=== PATIENT | female | born 1990 | race American Indian/Alaskan Native ===

== ENCOUNTER → 2021-02-06 | Outpatient (CLI) | payer MEDICAID | END | disposition home or self-care (01) | LOC: SLR 11:00 | PROVIDERS: ATTEND Internal Medicine | DX: G47.30 Sleep apnea, unspecified (principal) | CPT/HCPCS: G0399 ==

== ENCOUNTER 2021-04-17 07:43 | Day surgery (SDC) | payer MEDICAID ==
--- NOTE | 2021-04-17 09:34 | Discharge Summary ---
Providers - Providers Date of Admission: 04/17/2021 Date of discharge: 04/17/21 Attending physician: RODRIGO SWENSON MD Primary care physician: RISA MALDONADO Hospitalization Reason for admission: pre-op egd Condition: Good Procedures: egd with bx Hospital course: Pt presented for a pre-op EGD as part of planning for up coming bariatric surgery. Procedure was uneventful and pt recovered well and was discharged to home. Disposition: 01 HOME / SELF CARE / HOMELESS Final Discharge Diagnosis (Prints w/discharge instructions): dyspepsia, morbid obesity Core Measure Documentation - Palliative Care Palliative Care/ Comfort Measures: Not Applicable - Core Measures Any of the following diagnoses?: none Exam - Physical Exam Narrative exam: unchanged pre-op Plan Activity: no restrictions Diet: low carbohydrate Follow up with: RISA MALDONADO MD [Primary Care Provider] - 7 Days
--- NOTE | 2021-04-17 09:35 | Operative Report ---
Operative Report Operative Report: DATE: 04/17/2021 SURGERY: Upper endoscopy. SURGEON: Elida Harris M.D. PROCEDURE: EGD with biopsy PRE OP DX: morbid obesity, GERD POST OP DX: morbid obesity, GERD TYPE OF ANESTHESIA: MAC. ESTIMATED BLOOD LOSS: None. COMPLICATIONS: None. SPECIMENS REMOVED: antral biopsy FINDINGS: 1. Small hiatal hernia. 2. gastritis INDICATIONS:INDICATION FOR PROCEDURE: Patient is a 30-year-old female with a long history of morbid obesity. She is planned to have a weight loss procedure and is here for preoperative planning EGD. PROCEDURE DETAILS: After consent was reviewed, patient was taken back to the operating room where patient was placed in the left lateral decubitus position and a bite block was placed in the mouth. After a time-out was called, MAC anesthesia was initiated. I then passed the endoscope into her oropharynx, into her esophagus, visualized the entire esophagus, which was all within normal limits. Z-line was noted to about 36 cm from incisors. I then visualized the stomach and the first portion of the duodenum and there were no abnormalities I could clearly visualize except for antral gastritis. A cold forceps biopsy of the antrum was taken and will be sent to pathology to evaluate for H.pylori. I then retroflexed the scope in the stomach and visualized the hiatus and I could see a small hiatal hernia. I then desufflated the stomach and removed the endoscope. Patient tolerated procedure well and was transferred to recovery room in good and stable condition.
[2021-04-17] MEDS ORDERED: propofoL 200 MG/20 ML VIAL IV ONE (10:59)
[2021-04-17] MEDS ORDERED: LIDOCAINE MPF (2%) 20 MG/1 ML VIAL 5 ML ONE (11:00)
--- NOTE | 2021-04-17 11:27 | Anesthesia Consultation ---
Anesthesia Consult and Med Hx - Airway Anesthetic Teeth Evaluation: Good ROM Head & Neck: Adequate Mental/Hyoid Distance: Adequate Mallampati Class: Class II Intubation Access Assessment: Probably Good - Pulmonary Exam CTA: Yes - Cardiac Exam Cardiac Exam: RRR - Pre-Operative Health Status ASA Pre-Surgery Classification: ASA2 Proposed Anesthetic Plan: MAC - Pulmonary Hx Smoking: No - Cardiovascular System Hx Hypertension: No - Endocrine Hx Non-Insulin Dependent Diabetes: No - Other Systems Hx Obesity: Yes
--- NOTE | 2021-04-17 11:27 | Anesthesia Day of Surgery ---
Anesthesia Day of Surgery - Day of Surgery Patient Examined: Yes Patient H&P Reviewed: Yes Patient is NPO: Yes
--- NOTE | 2021-04-17 18:21 | Post Anesthesia Evaluation ---
- Post Anesthesia Evaluation Patient Participated: Yes Airway Patent: Yes Stable Respiratory Function: Yes Nausea/Vomiting: No Temp > 96.8F: Yes Pain Manageable: Yes Adequeate Hydration: Yes Anesthesia Complications: No Block Receding Appropriately: Not Applicable Patient on Ventilator: No
[2021-04-17 20:16] VITALS: BP 131/81
== END 2021-04-17 12:00 | disposition home or self-care (01) ==
LOC: GIO 07:43
PROVIDERS: ATTEND Surgery
DX: E66.01 Morbid (severe) obesity due to excess calories (principal); K21.9 Gastro-esophageal reflux disease without esophagitis; K44.9 Diaphragmatic hernia without obstruction or gangrene; K29.50 Unspecified chronic gastritis without bleeding; K31.89 Other diseases of stomach and duodenum; Z79.899 Other long term (current) drug therapy
CPT/HCPCS: 43239; 88305; 88342; J2704; J3490; J7120

== ENCOUNTER 2021-05-21 07:37 | Observation (INO) | payer MEDICAID ==
[2021-05-16 09:57] LABS: Hemoglobin 11.8 gm/dl (10.1-14.3); Mean Corpuscular HGB Conc 31 % (30-34); Mean Corpuscular Volume 81 fl (79-97); Platelet Count 234 K/mm3 (140-440); Red Cell Distribution Width 14.1 % (13.2-15.2)
--- NOTE | 2021-05-16 10:01 | Anesthesia Consultation ---
Anesthesia Consult and Med Hx Date of service: 05/21/21 - Airway Anesthetic Teeth Evaluation: Good ROM Head & Neck: Adequate Mental/Hyoid Distance: Adequate Mallampati Class: Class II Intubation Access Assessment: Good - Pre-Operative Health Status ASA Pre-Surgery Classification: ASA3 Proposed Anesthetic Plan: General - Pulmonary Hx Smoking: No Hx Respiratory Symptoms: No (+2FS) Hx Sleep Apnea: Yes - Cardiovascular System Hx Hypertension: No - Central Nervous System Hx Psychiatric Problems: No - Gastrointestinal Hx Gastroesophageal Reflux Disease: Yes - Endocrine Hx Non-Insulin Dependent Diabetes: No - Hematic Hx Sickle Cell Disease: No - Other Systems Hx Cancer: No Hx Obesity: Yes - Additional Comments Anesthesia Medical History Comments: Cardiac, pulmonary, psych, and med clearances on chart
[2021-05-16 10:21] LABS: Alanine Aminotransferase 15 units/L (7-56); Albumin 4.5 g/dL (3.9-5); Blood Urea Nitrogen 17 mg/dL (7-17); Calcium 9.6 mg/dL (8.4-10.2); Hemolysis Index 3
[2021-05-16 10:23] LABS: BUN/Creatinine Ratio 24
[~2021-05-21 07:37] MED LIST: ENOXAPARIN 40 MG/0.4 ML INJ SUB-Q NR; GABAPENTIN 500 MG/10 ML ORAL LIQD PO SCH; MIDAZOLAM 2 MG/2 ML INJ IV SCH; SCOPOLAMINE TRANSDERMAL PATCH 72 HR TD SCH; methOCARBAMOL 1,000 MG in SODIUM CHLORIDE 0.9% 250ML 250 ML IV ONE; metroNIDAZOLE/NS 500 MG/100 ML 500 MG/100 ML BAG IV NR
[2021-05-21] MEDS ORDERED: ENOXAPARIN 40 MG/0.4 ML INJ SUB-Q ONE (08:04)
[2021-05-21] MEDS ORDERED: BACTERIOSTATIC SODIUM CHLORIDE 0.9% 30 ML VIAL INFILTRATI ONE (08:04)
[2021-05-21] MEDS: LACTATED RINGERS 1,000 ML IV SCH (09:00)
[2021-05-21] MEDS ORDERED: KETAMINE/STERILE WATER 50 MG/ML SYRINGE ONE (09:42)
[2021-05-21] MEDS ORDERED: ONDANSETRON 4 MG/2 ML INJ IV PRN ×2 (09:58→14:43)
--- NOTE | 2021-05-21 09:58 | Anesthesia Day of Surgery ---
Anesthesia Day of Surgery - Day of Surgery Patient Examined: Yes Patient H&P Reviewed: Yes Patient is NPO: Yes
[2021-05-21] MEDS ORDERED: SCOPOLAMINE TRANSDERMAL PATCH 72 HR TD SCH (10:00)
--- OUTSIDE RECORDS SUMMARY | 2021-05-21 11:03 | External Medical Summary ---
:1990 Author Organization [facility], [facility] Address [address] [place] [address] Care Team Providers Name Role Phone Steven Unavailable [phone] PROBLEMS Type Condition ICD9-CM [id number]-YP Onset Condition W/U Status Risk SNOM ED Notes Code Code Dates Status Code Problem Sleep apnea, G47.30 Active confirmed 3288474 [id number] unspecified Problem Morbid E66.01 Active confirmed 026296461 (severe) obesity due to excess calories Problem Dietary Z71.3 Active confirmed 253891676 counseling and surveillance Problem Functional K30 Active confirmed [id number] dyspepsia ALLERGIES Allergen (clinical drug Drug/Non Drug Allergy Reaction Allergy Type Onset Date Status ingredient) documented on EMR Glucosamine Shellfish-derived Unknown Drug Allergy Acti ve Products ENCOUNTERS from 1990 to 2021-05-21 Encounter Location Date Provider Diagnosis [address] Apr, [facility] [place] [address] IMMUNIZATIONS No Information SOCIAL HISTORY Sex Assigned At : Social History Observation Description Sex Assigned At Unknown REASON FOR REFERRAL from 1990 to 2021-05-21 Reason Gastric Sleeve Diagnosis 1 Morbid (severe) obesity due to excess calories (E66.01) Diagnosis 2 Sleep apnea, unspecified (G4 7.30) Diagnosis 3 Functional dyspepsia (K30) Referral Organization [facility] Referring Provider First Name Elida Referring Provider Last Name Steven Referring Provider Specialty Surgery Referred Provider Formerly [facility], - Referral Priority Routine VITAL SIGNS No information MEDICATIONS Medication SIG (Take, Route, Notes Start Date End Date Status Frequency, Duration) Omeprazole 40 MG 1 capsule Orally Once Apr, Active a day Phentermine HCl 37.5 MG 1 capsule Orally Once Not-Taking a day Ondansetron 4 MG 1-2 tablet on the Apr, Active tongue and allow to dissolve Orally q 4-6 hours prn nausea PROCEDURES No Information RESULTS No Results REASON FOR VISIT Gastric Sleeve MEDICAL (GENERAL) HISTORY Type Description Date Medical History asthma Surgical History lap katy 2013 Goals Section No Information Health Concerns No Information MEDICAL EQUIPMENT No Information MENTAL STATUS No Information FUNCTIONAL STATUS No Information ASSESSMENTS No Information PLAN OF TREATMENT Medication Medication Name Sig Start Date Stop Date Omeprazole 40 MG 1 capsule Orally Once a day Apr, Ondansetron 4 MG 1-2 tablet on the tongue and allow to Apr, 022 dissolve Orally q 4-6 hours prn nausea Referrals Referral Date Details Gastric Sleeve Insurance Providers Payer Payer Payer Insured Patient Coverage Coverage Subscriber Tammie up Name Address Phone Name Relationship Start End Date Number Nu mber to Insured Date [employer] [phone] BRANDIE JIMENEZ self [id number] [facility] [phone] [address]
[2021-05-21] MEDS ORDERED: MAGNESIUM SULFATE 2 GM/50 ML BAG IV ONE (11:44)
[2021-05-21] MEDS ORDERED: SUGAMMADEX SODIUM 200 MG/2 ML VIAL IV ONE (11:45)
[2021-05-21] MEDS ORDERED: BUPIVACAINE/PF (0.25%) 2.5 MG/ML 30 ML VIAL INFILTRATI ONE ×2 (11:46→12:41)
[2021-05-21] MEDS ORDERED: LIDOCAINE 1%/EPINEPHRINE 1:100,000 VIAL (20 ML) INFILTRATI ONE ×2 (11:46→12:41)
[2021-05-21] MEDS ORDERED: fentaNYL 100 MCG/2 ML INJ ONE (11:49)
[2021-05-21] MEDS: ACETAMINOPHEN IV 1,000 MG/100 ML BOTTLE IV SCH ×2 (11:52→18:14)
[2021-05-21] MEDS ORDERED: SODIUM CHLORIDE 0.9% IRR 1,500 ML BOTTLE IR ONE (12:41)
[2021-05-21] MEDS ORDERED: LACTATED RINGERS 1,000 ML ONE (13:54)
[2021-05-21] MEDS ORDERED: ONDANSETRON 4 MG/2 ML INJ ONE (14:11)
[2021-05-21] MEDS ORDERED: ROCURONIUM 50 MG/5 ML INJ IV ONE (14:19)
[2021-05-21] MEDS ORDERED: dexAMETHasone 20 MG/5 ML VIAL ONE (14:19)
[2021-05-21] MEDS ORDERED: LIDOCAINE MPF (2%) 20 MG/1 ML VIAL 5 ML ONE (14:19)
[2021-05-21] MEDS ORDERED: KETOROLAC 30 MG/1 ML INJ ONE (14:19)
[2021-05-21] MEDS: HYDROmorphone 1 MG/1 ML INJ IV PRN ×5 (14:25→19:00)
[2021-05-21] MEDS ORDERED: ONDANSETRON 4 MG/2 ML INJ IV SCH (14:30)
[2021-05-21] MEDS ORDERED: MORPHINE 2 MG/1 ML INJ IV PRN (14:43)
[2021-05-21] MEDS ORDERED: hydrALAZINE 20 MG/1 ML INJ IV PRN (14:43)
[2021-05-21] MEDS ORDERED: METOCLOPRAMIDE 10 MG/2 ML INJ IV PRN (14:43)
[2021-05-21] MEDS ORDERED: HYDROcodone/Acetaminophen 7.5-325MG-15ML ORAL LIQD PO PRN (14:43)
[2021-05-21] MEDS ORDERED: HYDROmorphone 1 MG/1 ML INJ IV PRN (14:43)
[2021-05-21] MEDS ORDERED: LACTATED RINGERS 1,000 ML IV SCH (14:45)
--- NOTE | 2021-05-21 14:53 | Operative Report ---
Operative Report Operative Report: DATE:05/21/2021 Surgeon: Elida Harris MD Shake Cutter surgeon: Holden Patel CSA MD Pre-op Dx: morbid obesity Post-op Dx: morbid obesity Procedure: 1. laparoscopic sleeve gastrectomy Anesthesia: GETA, TAP block EBL: <10ml Specimen: gastric remnant Complication: none immediate Indication: 31 year old female with a history of morbid obesity . Pt is here for sleeve gastrectomy for weight loss to achieve healthier weight and improve or resolve her co-morbidities which includes obstructive sleep apnea. She expressed understanding of the risks and benefits. PROCEDURE IN DETAIL: After consent was reviewed, patient was taken back to the operating room, where patient was placed supine on the bed with both arms out. The patient's legs were doubly strapped to the bed. Patient had a foot board in place. Patient had a body warmer placed by anesthesia. General anesthesia was induced with successful endotracheal intubation. Patient was then prepped and draped in normal sterile surgical fashion. After a time-out was called, I made a stab incision in the left subcostal area and placed a Veress needle through this incision and insufflated the abdomen to 18 mmHg pressure. I then counted down a handsbreadth below the xiphoid process in the midline and slightly left lateral injected local anesthetic and made about 1 cm transverse incision. I then used a 5-mm Optiview trocar to enter into the abdomen. There was no gross injury to any intra-abdominal structures. I then placed a 30-degree scope through this port and inspected the abdomen. I then placed a 5-mm port in the right upper quadrant, and 1 epigastric area below the costovertebral angle. I then placed a 15-mm port about a handsbreadth in the right mid abdomen. After which a 5mm port was placed in left upper quadrant port along the anterior axillary line in a similar fashion. A liver retractor was placed to the epigastric port to elevate the left lateral lobe and liver. The anterior gastric fat pad was excised. Starting approximately 6 cm proximal to the pylorus, using a Enseal device the short gastrics were taken all the way to the left lianet. Once the lateral portion of the stomach was mobile anesthesia passed a 40 Latvian bougie along the medial aspect to act as a stent. Using serial firings of endoscopic stapler to gold, followed by 4 blue, the lateral portion of the stomach was transected making sure to did not close to the 2 cm to the incisura. All staple loads were supported with Ethicon buttress strips. The sleeve stomach was seen to be without kink obstruction or twisting. The pressure was decreased to 10 mmHg. The staple line was inspected for approximately 5 minutes. There was no significant bleeding appreciated except for a slight loose at the most distal portion of the staple line. Bleeding was minimal and easily controlled with minimal cautery. Vistaseal was then sprayed along the entirety of the staple line. The liver retractor was removed. This was after the gastric remnant was grasped and pulled into the 15 mm trocar site. The stomach was extracted via the 15 mm trocar site. After the fascia had to be stretched with a Sharyn clamp to easily remove the stomach, the fascia was closed using a risa sonam device at the level of the fascia with an 0 PDS. trocars were removed under direct visualization. A TAP block was performed in transverse abdominis plane at the mid axillary line bilaterally using 60cc of 0.25% marcaine. All skin incisions were closed with 4-0 Monocryl followed by Dermabond. Patient was awoken, extubated, and taken to recovery stable condition. All counts were correct.
[2021-05-21] MEDS: PANTOPRAZOLE 40 MG INJ IV SCH (16:00)
[2021-05-21] MEDS ORDERED: metroNIDAZOLE/NS 500 MG/100 ML 500 MG/100 ML BAG IV SCH (18:00)
[2021-05-21] MEDS ORDERED: ceFAZolin/NS 1 GM/50 ML 1 GM/50 ML BAG IV SCH (18:00)
[2021-05-21] MEDS ORDERED: ACETAMINOPHEN IV 1,000 MG/100 ML BOTTLE IV SCH (18:00)
[2021-05-21] MEDS: KETOROLAC 30 MG/1 ML INJ IV SCH (21:46)
[2021-05-22] MEDS: LACTATED RINGERS 1,000 ML IV SCH (01:03)
[2021-05-22] MEDS: SIMETHICONE 80 MG CHEW TAB PO PRN ×3 (01:55→12:38)
[2021-05-22 07:41] VITALS: BP 126/73
[2021-05-22] MEDS: KETOROLAC 30 MG/1 ML INJ IV SCH (09:58)
[2021-05-22] MEDS ORDERED: ENOXAPARIN 40 MG/0.4 ML INJ SUB-Q SCH (10:00)
[2021-05-22] MEDS: PANTOPRAZOLE 40 MG INJ IV SCH (10:39)
[2021-05-22 10:48] LABS: Basophils % (Auto) 0.2 % (0.0-1.8); Hematocrit 32.1 % (30.3-42.9); Hemoglobin 10.3 gm/dl (10.1-14.3); Lymphocytes # (Auto) 1.4 K/mm3 (1.2-5.4); Lymphocytes % (Auto) 11.9 % (13.4-35.0); Mean Corpuscular HGB Conc 32 % (30-34); Mean Corpuscular Volume 80 fl (79-97); Monocytes % (Auto) 8.7 % (0.0-7.3); Platelet Count 212 K/mm3 (140-440); Red Blood Count 4.02 M/mm3 (3.65-5.03); Red Cell Distribution Width 14.2 % (13.2-15.2)
[2021-05-22 11:31] LABS: Alanine Aminotransferase 21 units/L (7-56); Albumin 3.7 g/dL (3.9-5); Blood Urea Nitrogen 8 mg/dL (7-17); Calcium 9.1 mg/dL (8.4-10.2); Hemolysis Index 1
[2021-05-22 11:35] LABS: BUN/Creatinine Ratio 11
--- NOTE | 2021-05-22 13:42 | Discharge Summary ---
Providers - Providers Date of Admission: 05/21/21 07:37 Date of discharge: 05/22/21 Attending physician: RODRIGO SWENSON MD 05/21/21 14:43 Physical Therapy Evaluation and Treat [CONS] Routine Comment: Reason For Exam: post op bariatric surgery Primary care physician: RISA MALDONADO Hospitalization Reason for admission: s/p lap gastric sleeve Condition: Good Procedures: laparoscopic gastric sleeve Hospital course: Pt had an uneventful laparoscopic sleeve gastrectomy with treatment of morbid obesity. She was admitted for postoperative care. She remained afebrile and stable tolerating clear liquids and ambulating well on her own. Patient had laboratory values and vital signs that were within acceptable limits. Patient was discharged on postoperative day #1 showing no gross clinical signs of leak or bleeding. Patient is to follow-up in the office within 2 weeks. Disposition: 01 HOME / SELF CARE / HOMELESS Final Discharge Diagnosis (Prints w/discharge instructions): morbid obesity, sleep apnea Core Measure Documentation - Palliative Care Palliative Care/ Comfort Measures: Not Applicable - Core Measures Any of the following diagnoses?: none Exam - Constitutional Vitals: Temp Pulse Resp BP Pulse Ox 98.9 F 78 18 126/73 95 05/22/21 07:31 05/22/21 07:31 05/22/21 07:31 05/22/21 07:31 05/22/21 07:31 General appearance: Present: no acute distress, obese - EENT Eyes: Absent: scleral icterus - Respiratory Respiratory effort: normal - Cardiovascular Heart Sounds: Present: S1 & S2 - Extremities Extremities: no ischemia - Abdominal General gastrointestinal: Present: soft, other (appropriately tender to palpation with incisions c/d/i) - Psychiatric Psychiatric: appropriate mood/affect - Neurologic Neurologic: CNII-XII intact Plan Activity: advance as tolerated Diet: clear liquids Wound: open to air, keep clean and dry Follow up with: RISA MALDONADO MD [Primary Care Provider] - 7 Days
== END 2021-05-22 16:26 | disposition home or self-care (01) ==
LOC: INTOOBSV 07:37 → 3A 07:37 → 4A 19:05
PROVIDERS: ADMIT Surgery; ATTEND Surgery
DX: E66.01 Morbid (severe) obesity due to excess calories (principal); Z20.822 Contact with and (suspected) exposure to COVID-19; G47.33 Obstructive sleep apnea (adult) (pediatric); K21.9 Gastro-esophageal reflux disease without esophagitis; Z68.41 Body mass index [BMI] 40.0-44.9, adult; Z79.899 Other long term (current) drug therapy; Z98.890 Other specified postprocedural states
CPT/HCPCS: 36415; 43775; 80053; 84703; 85025; 85027; 88307; 88342; 96372; 96374; 96375; 96376; 97162; C9113; G0378; G0379; J0131; J0690; J1100; J1170; J1650; J1885; J2250; J2270; J2405; J2704; J3010; J3475; J3490; J7120; U0003